=== PATIENT | female | born 1945 | race Two or more races ===

== ENCOUNTER 2023-11-25 09:33 | Emergency (ER) | payer OTHER ==
[~2023-11-25] VITALS: Ht 162.6 cm; Wt 78.0 kg
[2023-11-25] MEDS ORDERED: METFORMIN HCL500 M3 PO (09:53)
[2023-11-25] MEDS ORDERED: COZAAR100 MG PO (09:53)
[2023-11-25] MEDS ORDERED: PEPCID AC20 MG PO (09:56)
[2023-11-25] MEDS ORDERED: TOPROL XL100 M1 PO (09:56)
[2023-11-25] MEDS ORDERED: CRESTOR40 MG PO (09:57)
[2023-11-25] MEDS ORDERED: REGLAN5 MG/5 ML PO (09:58)
[2023-11-25 14:25] LABS: HEMATOCRIT 40.9 % (36.0-45.00); HEMOGLOBIN 13.8 g/dL (12.0-15.00); MEAN CELL VOLUME 86.4 fL (80.00-100.00); MEAN CORPUSCULAR HEMOGLOBIN 29.1 pg (27.00-32.0); MEAN CORPUSCULAR HGB CONC 33.7 g/dl (32.0-36.0); PLATELET COUNT 224 K/uL (150-450); RED BLOOD COUNT 4.73 M/uL (4.00-6.00); RED CELL DISTRIBUTION WIDTH 13.8 % (11.5-14.5)
[2023-11-25] MEDS ORDERED: MONTELUKAST SOD10 MG PO (15:19)
[2023-11-25] MEDS ORDERED: ZITHROMAX500 MG PO (15:19)
== END 2023-11-25 15:32 | disposition home or self-care (01) ==
LOC: ER 09:34
PROVIDERS: General Practice
DX: J06.9 Acute upper respiratory infection, unspecified (principal); Z20.822 Contact with and (suspected) exposure to COVID-19; E11.9 Type 2 diabetes mellitus without complications; Z79.84 Long term (current) use of oral hypoglycemic drugs; I10 Essential (primary) hypertension
CPT/HCPCS: 36415; 71046; 94640; 96365; 99284; J2930